=== PATIENT | female | born 1965 | race Caucasian/White ===

== ENCOUNTER 2025-01-20 11:17 | Outpatient (REF) | payer OTHER, SELFPAY ==
[2025-01-20 12:26] LABS: Anion Gap 12 (12-20); Blood Urea Nitrogen 13 mg/dL (9-16); Calcium 9.3 mg/dL (8.4-10.2); Carbon Dioxide 27 mmol/L (22-29); Chloride 105 mmol/L (96-108); Estimated Glomerular Filt Rate > 60; Glucose Random 102 mg/dL (60-115); Potassium 4.6 mmol/L (3.3-5.1); Sodium 139 mmol/L (135-145)
[2025-01-20 12:42] LABS: TSH reflex Free T4 1.43 uIU/mL (0.32-4.0)
--- OUTSIDE RECORDS SUMMARY | 2025-01-20 12:49 | XMS_ITS | Clinical Summary ---
Author Organization [facility] Address [address] [place] [address] Care Team Providers Care Clerical Manager Name Role Phone Unavailable Primary Care Provider Unavailabl e Source Comments PLEASE NOTE, if this patient is a minor, it may be UNLAWFUL to discuss sensitive information that is contained in these records (such as FAMILY PLANNING, MENTAL HEALTH or SUBSTANCE ABUSE) with the minor patient's parent or other person without the patient's specific authorization.[facility] Allergies No known active allergies Medications ibuprofen (ADVIL,MOTRIN) 600 mg tabletIndication s:Headache, unspecified headache type Take 1 Tab by mouth 3 (three) times daily as needed for pain. 60 Tab 1 5 Active omeprazole (PRILOSEC) [address] capsuleIndicatio ns:Gastroesophag eal reflux disease without esophagitis Take 1 Cap by mouth every morning before breakfast. Do not crush or chew. 30 Cap 6 6 Active metroNIDAZOLE (METROGEL) 0.75 % vaginal gelIndications:B V (bacterial vaginosis) Place 1 Applicator vaginally nightly at bedtime. 70 g 1 6 Active chlorhexidine gluconate (PERIDEX) 0.12 % solutionIndicati ons:Periodontiti s Swish and spit 15 mL 2 (two) times daily 473 mL 9 Active Active Problems Problem Noted Date Diagnosed Date Hyperthyroidism 06/25/2013 Hyperlipidemia LDL goal <160 05/19/2013 Hip bursitis, left Immunizations Immunization Administration Dates Next Due Hep B, Adult/Adol (ENERGIX/RECOMBIVAX) 7,02/12/2007 INFLUENZA, SEASONAL, INJECTABLE 06/07/2009,11/08 Family History Medical History Relation Name Comments Cancer Father High Cholesterol Father Hypertension Father Kidney disease Mother Relation Name Status Comments Father Mother Social History Tobacco Use Types Packs/Day Years Used Date Smoking Tobacco: Never Alcohol Use Standard Drinks/Week Comments No 0 (1 standard drink = 0.6 oz pur e alcohol) Social Connections Answer Date Recorded Social Connections and Isolation 0 05/09/2019 Financial Resource Strain Answer Date R ecorded Financial Resource Strain 0 2018 Stress Answer Date Recorded Stress 0 05/09/2019 Physical Activity Answer Date Recorded Physical Activity 0 05/09/2019 Food Insecurity Answer Date Recorded Food 0 05/09/2019 Transportation Needs Answer Date Record ed Transportation 0 05/09/2019 Housing Stability Answer Date Recorded Housing 0 05/09/2019 Safety and Environment Answer Date Mukesh rded Safety 0 05/09/2019 Utilities Answer Date Recorded Utilities 0 05/09/2019 Employment Answer Date Recorded Employment 0 05/09/2019 Comments No Sex and Gender Information Value Date Recorded Sex Assigned at Not on file Legal Sex Female 11:36 AM PDT Gender Identity Not on file Sexual Orientation Not on file Last Filed Vital Signs Vital Sign Reading Time Taken Comments Blood Pressure 118/78 01/19/2016 4:28 PM EDT Pulse 70 01/19/2016 4:28 PM EDT Temperature 36.1 ??C (97 ??F) 01/19/2016 4:28 PM EDT Respiratory Rate 16 01/19/2016 4:28 PM EDT Oxygen Saturation - - Inhaled Oxygen Concentration - - Weight 67.1 kg (148 lb) 01/19/2016 4:28 PM EDT Height 149.9 cm (4' 11 ) 01/19/2016 4:28 PM EDT Body Mass Index 29.89 01/19/2016 4:28 PM EDT Plan of Treatment Not on file Insurance [facility] [employer] D[employer] PLAN Member Subscriber Plan / Payer (Ef fective 2015-Present) Name:Josefa Judge Relation to Subscriber:Self Name:Josefa Judge Payer ID:[id number] Group ID:[id number] Type:Medicaid Address: [address] [address] [place] [address] [facility]
[2025-01-20 12:56] LABS: Folate 6.8 ng/mL (> or = 4.0); Vitamin B12 417 pg/mL (200-900)
== END 2025-01-20 11:18 | disposition home or self-care (01) ==
LOC: HO.LAB 11:17
PROVIDERS: PCP Internal Medicine; Visit Provider Psychiatry & Neurology Neurology
DX: G31.84 Mild cognitive impairment of uncertain or unknown etiology (principal)
CPT/HCPCS: 36415; 80048; 82607; 82746; 84443

== ENCOUNTER 2025-02-11 17:55 | Outpatient (REF) | payer OTHER, SELFPAY ==
--- NOTE | ~2025-02-11 | MR_ITS ---
CLINICAL HISTORY: mci w memory loss MR Brain without gadolinium Comparison: None Findings: No restricted diffusion. No intra-axial mass or hemorrhage. No midline shift. No hydrocephalus. Vascular flow voids are intact. Mild scattered T2 signal prolongation within the periventricular and juxtacortical white matter. Note is also made of lesions along the corpus callosum, for example sagittal 10 of series 14 and axial 15 of series 8 The orbits are normal. The sinuses and mastoid air cells are clear. No focal bone lesion. IMPRESSION: No acute findings. Nonspecific white matter disease, mild to moderate. White matter lesions along the corpus callosum raises the possibility of multiple sclerosis although again are nonspecific. This document has been electronically signed by: Austin Ruiz MD on 02/12/2025 15:53:24
== END 2025-02-11 17:56 | disposition home or self-care (01) ==
LOC: HO.MRI 17:55
PROVIDERS: PCP Internal Medicine; Visit Provider Psychiatry & Neurology Neurology
DX: G31.84 Mild cognitive impairment of uncertain or unknown etiology (principal)
CPT/HCPCS: 70551

== ENCOUNTER → 2025-02-11 18:09 | Outpatient (BNV) | payer OTHER, SELFPAY | PROVIDERS: PCP Internal Medicine; Visit Provider Radiology Vascular & Interventional Radiology | DX: R90.82 White matter disease, unspecified (principal) | CPT/HCPCS: 70551 ==